=== PATIENT | female | born 1980 | race African-American/Black ===

== ENCOUNTER 2016-08-13 09:41 | Emergency (ER) | payer OTHER ==
[~2016-08-13] VITALS: Ht 149.9 cm; Wt 97.7 kg
[2016-08-13] MEDS ORDERED: METR500 PO (10:18)
[2016-08-13] MEDS ORDERED: OMEP20 PO (10:18)
[2016-08-13] MEDS ORDERED: DOXY75TA2 PO (10:18)
[2016-08-13 10:37] LABS: BASOPHILS # (AUTO) 0.03 K/uL (0.00-0.20); BASOPHILS % (AUTO) 0.4 % (0.0-2.0); EOSINOPHILS % (AUTO) 2.75 % (1.0-6.0); LYMPHOCYTES # (AUTO) 2.5 K/uL (1.0-4.8); LYMPHOCYTES % (AUTO) 33.1 % (22.0-44.0); MEAN CORPUSCULAR HEMOGLOBIN 27.3 pg (26.0-34.0); MEAN CORPUSCULAR HGB CONC 32.3 G/dL (31.0-37.0); MEAN CORPUSCULAR VOLUME 84 fL (80-100); MONOCYTES # (AUTO) 0.5 K/uL (0.1-1.0); MONOCYTES % (AUTO) 6.2 % (2.0-9.0); NEUTROPHILS # (AUTO) 4.3 K/uL (1.8-7.7); NEUTROPHILS % (AUTO) 57.5 % (40.0-70.0); PLATELET COUNT (AUTO) 241 K/uL (150-450); RED BLOOD CELL COUNT(AUTO) 4.38 MIL/uL (4.00-5.20); RED CELL DISTRIBUTION WIDTH 16.8 % (11.5-14.5); WHITE BLOOD COUNT (AUTO) 7.4 K/uL (4.5-11.0)
[2016-08-13 10:42] LABS: APPEARANCE,URINE CLOUDY (CLEAR); GLUCOSE, URINE (UA) NEGATIVE (NEGATIVE); KETONES,URINE NEGATIVE (NEGATIVE); LEUKOCYTE ESTERASE ,URINE NEGATIVE (NEGATIVE); OCCULT BLOOD,URINE LARGE (NEGATIVE); PROTEIN,URINE NEGATIVE (NEGATIVE)
[2016-08-13 10:43] LABS: ADD UA MICROSCOPIC YES
[2016-08-13 10:47] LABS: ANION GAP 10 mmol/L (8-16); CALCIUM, TOTAL 8.6 mg/dL (8.8-10.5); CARBON DIOXIDE 26 mmol/L (22-29); CHLORIDE 104 mmol/L (98-107); CREATININE 0.85 mg/dL (0.60-1.30); GLOMERULAR FILTR. RATE CALC > 60 mL/min (>60); POTASSIUM 4.2 mmol/L (3.5-5.1); SODIUM SERUM 140 mmol/L (136-145); UREA NITROGEN, BLOOD 6 mg/dL (7-18)
[2016-08-13 10:52] LABS: ALANINE AMINOTRANSFERASE 22 U/L (12-78); ALBUMIN 3.1 g/dL (3.4-5.0); ASPARTATE AMINOTRANSFERASE 21 U/L (15-37); BILIRUBIN,TOTAL 0.5 mg/dL (0.1-1.0); TOTAL PROTEIN, SERUM 7.1 g/dL (6.4-8.2)
[2016-08-13 10:53] LABS: SQUAMOUS EPITHELIAL CELL,UR Many /LPF (None Seen); WBC,URINE 0-2 /HPF (0-5)
[2016-08-13] MEDS ORDERED: KETOROLAC TROMETHAMINE 30 MG/ML VIAL IVP ONE (11:15)
[2016-08-13 13:25] VITALS: BP 120/79
== END 2016-08-13 13:36 | disposition home or self-care (01) ==
LOC: EMS 09:41
DX: M62.838 Other muscle spasm (principal); M79.1 Myalgia; R10.9 Unspecified abdominal pain
CPT/HCPCS: 36415; 71020; 80053; 81001; 84703; 85025; 87086; 96374; 99285; J1885

== ENCOUNTER 2019-02-02 14:28 | Emergency (ER) | payer OTHER ==
[~2019-02-02] VITALS: Ht 149.9 cm; Wt 75.0 kg
[~2019-02-02 14:28] MED LIST: DOXY75TA14 PO; METR500 PO; OMEP20 PO
[2019-02-02 14:57] LABS: BASOPHILS % (AUTO) 0.7 % (0.0-2.0); EOSINOPHILS % (AUTO) 0.5 % (1.0-6.0); HEMATOCRIT 39.3 % (36-46); HEMOGLOBIN 12.9 g/dL (12.0-16.0); LYMPHOCYTES # (AUTO) 2.1 K/uL (1.0-4.8); LYMPHOCYTES % (AUTO) 32.5 % (22.0-44.0); MEAN CORPUSCULAR HGB CONC 32.7 G/dL (31.0-37.0); MEAN CORPUSCULAR VOLUME 92 fL (80-100); MONOCYTES # (AUTO) 0.4 K/uL (0.1-1.0); MONOCYTES % (AUTO) 5.6 % (2.0-9.0); NEUTROPHILS # (AUTO) 3.9 K/uL (1.8-7.7); NEUTROPHILS % (AUTO) 60.7 % (40.0-70.0); PLATELET COUNT (AUTO) 202 K/uL (150-450); RED BLOOD CELL COUNT(AUTO) 4.28 MIL/uL (4.00-5.20); RED CELL DISTRIBUTION WIDTH 14.8 % (11.5-14.5)
[2019-02-02 15:10] LABS: ANION GAP 12 mmol/L (8-16); CALCIUM, TOTAL 8.8 mg/dL (8.8-10.5); CARBON DIOXIDE 26 mmol/L (22-29); CHLORIDE 103 mmol/L (98-107); CREATININE 0.75 mg/dL (0.60-1.30); GLOMERULAR FILTR. RATE CALC > 60 mL/min (>60); GLUCOSE,RANDOM 73 mg/dL (70-110); SODIUM SERUM 141 mmol/L (136-145); UREA NITROGEN, BLOOD 7 mg/dL (7-18)
[2019-02-02 15:16] LABS: ALANINE AMINOTRANSFERASE 15 U/L (12-78); ALBUMIN 3.8 g/dL (3.4-5.0); ALKALINE PHOSPHATASE 69 U/L (46-116); ASPARTATE AMINOTRANSFERASE 19 U/L (15-37); BILIRUBIN,TOTAL 0.9 mg/dL (0.1-1.0); TOTAL PROTEIN, SERUM 7.5 g/dL (6.4-8.2)
[2019-02-02 15:46] LABS: HCG,QUANTITATIVE < 1 mIU/mL (0-6)
[2019-02-02] MEDS ORDERED: KETOROLAC TROMETHAMINE 60 MG/2 ML VIAL IM ONE (16:00)
[2019-02-02 16:21] VITALS: BP 129/34
[2019-02-02 16:38] LABS: APPEARANCE,URINE CLEAR (CLEAR); BILIRUBIN,URINE NEGATIVE (NEGATIVE); GLUCOSE, URINE (UA) NEGATIVE (NEGATIVE); KETONES,URINE >=80 mg/dL (NEGATIVE); LEUKOCYTE ESTERASE ,URINE NEGATIVE (NEGATIVE); NITRATE,URINE NEGATIVE (NEGATIVE); OCCULT BLOOD,URINE NEGATIVE (NEGATIVE); PH,URINE 7.5 (5.0-8.0); PROTEIN,URINE NEGATIVE (NEGATIVE); UROBILINOGEN,URINE 0.2 mg/dL (<=1.0)
== END 2019-02-02 17:00 | disposition home or self-care (01) ==
LOC: EMS 14:29
DX: R07.89 Other chest pain (principal)
CPT/HCPCS: 36415; 71045; 80053; 81003; 84484; 84702; 85025; 93005; 96372; 99284; J1885

== ENCOUNTER 2019-05-11 12:03 | Emergency (ER) | payer OTHER ==
[~2019-05-11] VITALS: Ht 149.9 cm; Wt 75.0 kg
[~2019-05-11 12:03] MED LIST changes: -DOXY75TA14 PO; -METR500 PO
[2019-05-11 13:06] LABS: RAPID GROUP A STREP NEGATIVE (NEGATIVE)
[2019-05-11] MEDS ORDERED: KETOROLAC TROMETHAMINE 60 MG/2 ML VIAL IM ONE (13:15)
[2019-05-11 13:18] LABS: INFLUENZA TYPE A NEGATIVE FOR TYPE A (NEGATIVE); INFLUENZA TYPE B NEGATIVE FOR TYPE B (NEGATIVE)
[2019-05-11] MEDS ORDERED: OSELTAMIVIR PHOSPHATE 75 MG CAPSULE PO ONE (13:30)
[2019-05-11 13:50] VITALS: BP 118/76
== END 2019-05-11 13:54 | disposition home or self-care (01) ==
LOC: EMS 12:05
DX: J02.9 Acute pharyngitis, unspecified (principal); R05 Cough; Z91.018 Allergy to other foods
CPT/HCPCS: 81025; 87430; 87804; 96372; 99283; J1885

== ENCOUNTER 2019-12-17 08:38 | Emergency (ER) | payer OTHER ==
[~2019-12-17] VITALS: Ht 149.9 cm; Wt 78.0 kg
[2019-12-17] MEDS ORDERED: IOVERSOL 350 MG/ML 100 ML VIAL ONE (09:13)
[2019-12-17] MEDS ORDERED: SODIUM CHLORIDE 0.9% 100 ML ONE (09:13)
[2019-12-17] MEDS ORDERED: HYDROmorphone 2 MG/ML SYRINGE IVP ONE (09:15)
[2019-12-17] MEDS ORDERED: ONDANSETRON HCL 4 MG/2 ML VIAL IVP ONE (09:15)
[2019-12-17] MEDS ORDERED: BARIUM SULFATE 0.1% SUSPENSION 450 ML BOTTLE PO ONE (09:15)
[2019-12-17] MEDS ORDERED: SODIUM CHLORIDE 0.9% 1,000 ML IV ONE (09:15)
[2019-12-17 09:23] LABS: EOSINOPHILS % (AUTO) 1.5 % (1.0-6.0); HEMATOCRIT 36.1 % (36-46); HEMOGLOBIN 11.9 g/dL (12.0-16.0); LYMPHOCYTES # (AUTO) 2.9 K/uL (1.0-4.8); LYMPHOCYTES % (AUTO) 55.7 % (22.0-44.0); MEAN CORPUSCULAR HEMOGLOBIN 29.7 pg (26.0-34.0); MEAN CORPUSCULAR VOLUME 90 fL (80-100); MONOCYTES # (AUTO) 0.5 K/uL (0.1-1.0); MONOCYTES % (AUTO) 9.2 % (2.0-9.0); NEUTROPHILS # (AUTO) 1.7 K/uL (1.8-7.7); NEUTROPHILS % (AUTO) 32.6 % (40.0-70.0); PLATELET COUNT (AUTO) 255 K/uL (150-450); RED BLOOD CELL COUNT(AUTO) 4.02 MIL/uL (4.00-5.20); RED CELL DISTRIBUTION WIDTH 16.6 % (11.5-14.5)
[2019-12-17 09:31] LABS: ANION GAP 8 mmol/L (8-16); CALCIUM, TOTAL 8.3 mg/dL (8.8-10.5); CARBON DIOXIDE 26 mmol/L (22-29); CHLORIDE 106 mmol/L (98-107); CREATININE 0.86 mg/dL (0.60-1.30); GLOMERULAR FILTR. RATE CALC > 60 mL/min (>60); GLUCOSE,RANDOM 83 mg/dL (70-110); POTASSIUM 3.7 mmol/L (3.5-5.1); SODIUM SERUM 140 mmol/L (136-145); UREA NITROGEN, BLOOD 4 mg/dL (7-18)
[2019-12-17 09:44] LABS: ALANINE AMINOTRANSFERASE 14 U/L (12-78); ALBUMIN 3.2 g/dL (3.4-5.0); ALKALINE PHOSPHATASE 55 U/L (46-116); ASPARTATE AMINOTRANSFERASE 16 U/L (15-37); BILIRUBIN,TOTAL 0.4 mg/dL (0.1-1.0); HCG,QUANTITATIVE 1 mIU/mL (0-6); LIPASE 112 U/L (73-393)
[2019-12-17] MEDS ORDERED: KETOROLAC TROMETHAMINE 30 MG/ML VIAL IVP ONE (11:15)
[2019-12-17 11:22] LABS: BILIRUBIN,URINE NEGATIVE (NEGATIVE); GLUCOSE, URINE (UA) NEGATIVE (NEGATIVE); KETONES,URINE NEGATIVE (NEGATIVE); LEUKOCYTE ESTERASE ,URINE NEGATIVE (NEGATIVE); NITRATE,URINE NEGATIVE (NEGATIVE); PROTEIN,URINE NEGATIVE (NEGATIVE); UROBILINOGEN,URINE 0.2 mg/dL (<=1.0)
[2019-12-17 11:33] LABS: APPEARANCE,URINE HAZY (CLEAR); OCCULT BLOOD,URINE SMALL (NEGATIVE)
[2019-12-17 11:34] LABS: BACTERIA,URINE Few /HPF (None Seen); SQUAMOUS EPITHELIAL CELL,UR Many /LPF (None Seen); WBC,URINE 0-2 /HPF (0-5)
[2019-12-17 14:31] VITALS: BP 107/71
== END 2019-12-17 15:20 | disposition home or self-care (01) ==
LOC: EMS 08:41
DX: K52.9 Noninfective gastroenteritis and colitis, unspecified (principal); R05 Cough; Z20.828 Contact with and (suspected) exposure to other viral communicable diseases
CPT/HCPCS: 36415; 74177; 80053; 81001; 83690; 84702; 85025; 87426; 96361; 96374; 96375; 99285; J1170; J1885; J2405; J7030; J7050; Q9967

== ENCOUNTER 2019-12-18 07:55 | Emergency (ER) | payer OTHER ==
[~2019-12-18] VITALS: Ht 149.9 cm; Wt 70.5 kg
[2019-12-18] MEDS ORDERED: HYDROmorphone 2 MG/ML SYRINGE IVP ONE (10:15)
[2019-12-18] MEDS ORDERED: KETOROLAC TROMETHAMINE 30 MG/ML VIAL IVP ONE (10:15)
[2019-12-18] MEDS ORDERED: ONDANSETRON HCL 4 MG/2 ML VIAL IVP ONE (10:15)
[2019-12-18 10:34] LABS: BASOPHILS % (AUTO) 0.9 % (0.0-2.0); HEMATOCRIT 36.9 % (36-46); HEMOGLOBIN 11.9 g/dL (12.0-16.0); LYMPHOCYTES # (AUTO) 2.7 K/uL (1.0-4.8); LYMPHOCYTES % (AUTO) 51.1 % (22.0-44.0); MEAN CORPUSCULAR HEMOGLOBIN 29.5 pg (26.0-34.0); MEAN CORPUSCULAR HGB CONC 32.3 G/dL (31.0-37.0); MEAN CORPUSCULAR VOLUME 91 fL (80-100); MONOCYTES # (AUTO) 0.3 K/uL (0.1-1.0); MONOCYTES % (AUTO) 6.4 % (2.0-9.0); NEUTROPHILS # (AUTO) 2.2 K/uL (1.8-7.7); NEUTROPHILS % (AUTO) 40.6 % (40.0-70.0); PLATELET COUNT (AUTO) 249 K/uL (150-450); RED BLOOD CELL COUNT(AUTO) 4.04 MIL/uL (4.00-5.20); RED CELL DISTRIBUTION WIDTH 17.1 % (11.5-14.5)
[2019-12-18 10:42] LABS: ANION GAP 8 mmol/L (8-16); CALCIUM, TOTAL 8.2 mg/dL (8.8-10.5); CARBON DIOXIDE 24 mmol/L (22-29); CHLORIDE 109 mmol/L (98-107); CREATININE 0.99 mg/dL (0.60-1.30); GLOMERULAR FILTR. RATE CALC > 60 mL/min (>60); GLUCOSE,RANDOM 66 mg/dL (70-110); POTASSIUM 4.1 mmol/L (3.5-5.1); SODIUM SERUM 141 mmol/L (136-145); UREA NITROGEN, BLOOD 5 mg/dL (7-18)
[2019-12-18 11:53] VITALS: BP 112/71
== END 2019-12-18 13:17 | disposition home or self-care (01) ==
LOC: EMS 07:58
DX: N83.202 Unspecified ovarian cyst, left side (principal); F10.129 Alcohol abuse with intoxication, unspecified; R33.9 Retention of urine, unspecified; Y90.8 Blood alcohol level of 240 mg/100 ml or more
CPT/HCPCS: 36415; 51701; 76856; 80048; 85025; 96374; 96375; 99284; G0480; J1170; J1885; J2405; 51702

== ENCOUNTER 2020-01-14 23:18 | Emergency (ER) | payer OTHER ==
[~2020-01-14] VITALS: Ht 149.9 cm; Wt 70.9 kg
[2020-01-14 23:23] VITALS: BP 112/81
== END 2020-01-15 01:16 | disposition left against medical advice (07) ==
LOC: EMS 23:18
DX: R10.9 Unspecified abdominal pain (principal); Z53.21 Procedure and treatment not carried out due to patient leaving prior to being seen by health care provider

== ENCOUNTER 2020-03-20 03:34 | Emergency (ER) | payer OTHER ==
[~2020-03-20] VITALS: Ht 149.9 cm; Wt 68.6 kg
[2020-03-20 04:49] LABS: BASOPHILS % (AUTO) 0.6 % (0.0-2.0); EOSINOPHILS % (AUTO) 1.2 % (1.0-6.0); HEMATOCRIT 36.5 % (36-46); LYMPHOCYTES # (AUTO) 3.2 K/uL (1.0-4.8); MEAN CORPUSCULAR HEMOGLOBIN 29.9 pg (26.0-34.0); MEAN CORPUSCULAR VOLUME 91 fL (80-100); MONOCYTES # (AUTO) 0.5 K/uL (0.1-1.0); MONOCYTES % (AUTO) 7.4 % (2.0-9.0); NEUTROPHILS # (AUTO) 3.6 K/uL (1.8-7.7); NEUTROPHILS % (AUTO) 47.8 % (40.0-70.0); PLATELET COUNT (AUTO) 212 K/uL (150-450); RED BLOOD CELL COUNT(AUTO) 4.03 MIL/uL (4.00-5.20); RED CELL DISTRIBUTION WIDTH 15.7 % (11.5-14.5)
[2020-03-20 04:55] LABS: ANION GAP 7 mmol/L (8-16); CALCIUM, TOTAL 8.7 mg/dL (8.8-10.5); CARBON DIOXIDE 28 mmol/L (22-29); CHLORIDE 107 mmol/L (98-107); CREATININE 0.91 mg/dL (0.60-1.30); GLOMERULAR FILTR. RATE CALC > 60 mL/min (>60); GLUCOSE,RANDOM 78 mg/dL (70-110); POTASSIUM 3.7 mmol/L (3.5-5.1); SODIUM SERUM 142 mmol/L (136-145); UREA NITROGEN, BLOOD 7 mg/dL (7-18)
[2020-03-20 05:01] LABS: PROTHROMBIN TIME 10.3 SEC (9.4-11.6)
[2020-03-20] MEDS ORDERED: ACETAMINOPHEN 325 MG TABLET PO ONE (05:15)
[2020-03-20 05:20] LABS: ALANINE AMINOTRANSFERASE 10 U/L (12-78); ALBUMIN 3.4 g/dL (3.4-5.0); ALKALINE PHOSPHATASE 74 U/L (46-116); ASPARTATE AMINOTRANSFERASE 12 U/L (15-37); BILIRUBIN,TOTAL 0.5 mg/dL (0.1-1.0); CREATINE KINASE, TOTAL ONLY 107 U/L (26-192); HCG,QUANTITATIVE 1 mIU/mL (0-6)
[2020-03-20 06:25] LABS: AMPHET/METH SCREEN,URINE NEGATIVE (NEGATIVE); BARBITURATE SCREEN, URINE NEGATIVE (NEGATIVE); BENZODIAZEPINES SCREEN,URINE NEGATIVE (NEGATIVE); CANNABINOID SCREEN,URINE NEGATIVE (NEGATIVE); COCAINE SCREEN,URINE NEGATIVE (NEGATIVE); METHADONE SCREEN, URINE NEGATIVE (NEGATIVE); OPIATE SCREEN,URINE NEGATIVE (NEGATIVE)
[2020-03-20 06:31] VITALS: BP 109/74
[2020-03-20 06:36] LABS: PHENCYCLIDINE SCREEN,URINE NEGATIVE (NEGATIVE)
== END 2020-03-20 06:33 | disposition home or self-care (01) ==
LOC: EMS 03:37
DX: M25.512 Pain in left shoulder (principal); F41.9 Anxiety disorder, unspecified; F10.10 Alcohol abuse, uncomplicated; M54.9 Dorsalgia, unspecified; R20.0 Anesthesia of skin; R51.9 Headache, unspecified; Z91.018 Allergy to other foods; Y90.7 Blood alcohol level of 200-239 mg/100 ml
CPT/HCPCS: 36415; 70450; 71045; 80053; 80307; 82550; 84484; 84702; 85025; 85610; 85730; 93005; 99285; G0480; 51701

== ENCOUNTER 2020-04-13 07:17 | Emergency (ER) | payer OTHER ==
[~2020-04-13] VITALS: Ht 149.9 cm; Wt 68.2 kg
[2020-04-13] MEDS ORDERED: KETOROLAC TROMETHAMINE 30 MG/ML VIAL IVP ONE (08:30)
[2020-04-13 08:42] LABS: APPEARANCE,URINE CLEAR (CLEAR); BILIRUBIN,URINE NEGATIVE (NEGATIVE); GLUCOSE, URINE (UA) NEGATIVE (NEGATIVE); KETONES,URINE NEGATIVE (NEGATIVE); LEUKOCYTE ESTERASE ,URINE NEGATIVE (NEGATIVE); NITRATE,URINE NEGATIVE (NEGATIVE); OCCULT BLOOD,URINE NEGATIVE (NEGATIVE); PH,URINE 6.5 (5.0-8.0); PROTEIN,URINE NEGATIVE (NEGATIVE); UROBILINOGEN,URINE 0.2 mg/dL (<=1.0)
[2020-04-13 08:45] LABS: BASOPHILS % (AUTO) 0.4 % (0.0-2.0); EOSINOPHILS % (AUTO) 1.8 % (1.0-6.0); HEMATOCRIT 36.7 % (36-46); HEMOGLOBIN 11.9 g/dL (12.0-16.0); LYMPHOCYTES % (AUTO) 43.6 % (22.0-44.0); MEAN CORPUSCULAR HEMOGLOBIN 29.4 pg (26.0-34.0); MEAN CORPUSCULAR HGB CONC 32.3 G/dL (31.0-37.0); MEAN CORPUSCULAR VOLUME 91 fL (80-100); MONOCYTES # (AUTO) 0.5 K/uL (0.1-1.0); MONOCYTES % (AUTO) 10.5 % (2.0-9.0); NEUTROPHILS % (AUTO) 43.7 % (40.0-70.0); PLATELET COUNT (AUTO) 217 K/uL (150-450); RED BLOOD CELL COUNT(AUTO) 4.04 MIL/uL (4.00-5.20); RED CELL DISTRIBUTION WIDTH 16.4 % (11.5-14.5)
[2020-04-13 08:55] LABS: ANION GAP 10 mmol/L (8-16); CALCIUM, TOTAL 7.9 mg/dL (8.8-10.5); CARBON DIOXIDE 25 mmol/L (22-29); CHLORIDE 111 mmol/L (98-107); CREATININE 0.74 mg/dL (0.60-1.30); GLOMERULAR FILTR. RATE CALC > 60 mL/min (>60); GLUCOSE,RANDOM 76 mg/dL (70-110); SODIUM SERUM 146 mmol/L (136-145); UREA NITROGEN, BLOOD 7 mg/dL (7-18)
[2020-04-13 09:02] LABS: ALANINE AMINOTRANSFERASE 20 U/L (12-78); ALBUMIN 3.6 g/dL (3.4-5.0); ALKALINE PHOSPHATASE 66 U/L (46-116); ASPARTATE AMINOTRANSFERASE 14 U/L (15-37); BILIRUBIN,TOTAL 0.3 mg/dL (0.1-1.0); LIPASE 186 U/L (73-393)
[2020-04-13] MEDS ORDERED: IOVERSOL 350 MG/ML 100 ML VIAL ONE (09:13)
[2020-04-13] MEDS ORDERED: SODIUM CHLORIDE 0.9% 100 ML ONE (09:13)
[2020-04-13 09:22] LABS: HCG,QUANTITATIVE 1 mIU/mL (0-6)
[2020-04-13] MEDS ORDERED: ACETAMINOPHEN 500 MG TABLET PO ONE (11:00)
[2020-04-13 12:47] VITALS: BP 109/73
== END 2020-04-13 12:50 | disposition home or self-care (01) ==
LOC: EMS 07:21
DX: R33.9 Retention of urine, unspecified (principal); R10.30 Lower abdominal pain, unspecified; R30.0 Dysuria
CPT/HCPCS: 36415; 51701; 74177; 76830; 76856; 80053; 81003; 81025; 83690; 84702; 84703; 85025; 87491; 87591; 96374; 99285; J1885; J7050; Q9967; 51702

== ENCOUNTER 2021-04-16 15:59 | Emergency (ER) | payer OTHER ==
[~2021-04-16] VITALS: Ht 149.9 cm; Wt 75.0 kg
[2021-04-16 17:06] LABS: BASOPHILS % (AUTO) 0.5 % (0.0-2.0); EOSINOPHILS % (AUTO) 0.5 % (1.0-6.0); HEMATOCRIT 34.9 % (36-46); HEMOGLOBIN 11.3 g/dL (12.0-16.0); LYMPHOCYTES # (AUTO) 1.5 K/uL (1.0-4.8); LYMPHOCYTES % (AUTO) 22.5 % (22.0-44.0); MEAN CORPUSCULAR HEMOGLOBIN 26.8 pg (26.0-34.0); MEAN CORPUSCULAR HGB CONC 32.5 G/dL (31.0-37.0); MEAN CORPUSCULAR VOLUME 83 fL (80-100); MONOCYTES # (AUTO) 0.5 K/uL (0.1-1.0); MONOCYTES % (AUTO) 7.3 % (2.0-9.0); NEUTROPHILS # (AUTO) 4.5 K/uL (1.8-7.7); NEUTROPHILS % (AUTO) 69.2 % (40.0-70.0); PLATELET COUNT (AUTO) 217 K/uL (150-450); RED BLOOD CELL COUNT(AUTO) 4.23 MIL/uL (4.00-5.20); RED CELL DISTRIBUTION WIDTH 16.5 % (11.5-14.5)
[2021-04-16 17:25] LABS: B-TYPE NATRIURETIC PEPTIDE 35 pg/mL (0-100)
[2021-04-16 17:27] LABS: ANION GAP 7 mmol/L (8-16); CALCIUM, TOTAL 8.3 mg/dL (8.8-10.5); CARBON DIOXIDE 29 mmol/L (22-29); CHLORIDE 104 mmol/L (98-107); GLOMERULAR FILTR. RATE CALC > 60 mL/min (>60); GLUCOSE,RANDOM 88 mg/dL (70-110); POTASSIUM 3.5 mmol/L (3.5-5.1); SODIUM SERUM 140 mmol/L (136-145); UREA NITROGEN, BLOOD 7 mg/dL (7-18)
[2021-04-16] MEDS ORDERED: ACETAMINOPHEN 500 MG TABLET PO ONE (17:30)
[2021-04-16 17:40] LABS: ALANINE AMINOTRANSFERASE 12 U/L (12-78); ALBUMIN 3.5 g/dL (3.4-5.0); ALKALINE PHOSPHATASE 79 U/L (46-116); ASPARTATE AMINOTRANSFERASE 17 U/L (15-37); BILIRUBIN,TOTAL 1.3 mg/dL (0.1-1.0); CREATINE KINASE, TOTAL ONLY 96 U/L (26-192); HCG,QUANTITATIVE 1 mIU/mL (0-6); TOTAL PROTEIN, SERUM 7.4 g/dL (6.4-8.2)
[2021-04-16 17:55] LABS: COVID AG,FIA SOURCE NASOPHARYNGEAL
[2021-04-16 18:24] LABS: INFLUENZA TYPE A NEGATIVE FOR TYPE A (NEGATIVE); INFLUENZA TYPE B NEGATIVE FOR TYPE B (NEGATIVE)
[2021-04-16 18:30] VITALS: BP 138/89
== END 2021-04-16 18:55 | disposition home or self-care (01) ==
LOC: EMS 15:59
DX: R07.89 Other chest pain (principal); Z20.822 Contact with and (suspected) exposure to COVID-19
CPT/HCPCS: 36415; 71045; 80053; 82550; 83880; 84484; 84702; 85025; 87426; 87804; 93005; 99285; U0003

== ENCOUNTER 2021-04-22 08:15 | Emergency (ER) | payer OTHER ==
[~2021-04-22] VITALS: Ht 149.9 cm; Wt 76.4 kg
[2021-04-22 08:24] VITALS: BP 140/93
[2021-04-22] MEDS ORDERED: CIPROFLOXACIN HCL 0.3% 2.5 ML OPHTHALMIC SOLUTION OU ONE (08:45)
== END 2021-04-22 09:36 | disposition home or self-care (01) ==
LOC: EMS 08:15
DX: B30.9 Viral conjunctivitis, unspecified (principal)
CPT/HCPCS: 99282; 99283

== ENCOUNTER 2021-12-30 05:37 | Emergency (ER) | payer OTHER ==
[~2021-12-30] VITALS: Ht 149.9 cm; Wt 79.0 kg
[2021-12-30] MEDS ORDERED: FLUC150T61 PO (06:28)
[2021-12-30] MEDS ORDERED: MICO45CR44 VG (06:28)
[2021-12-30] MEDS ORDERED: CEPH-558 PO (06:28)
[2021-12-30] MEDS ORDERED: ACET-2080 PO (06:28)
[2021-12-30] MEDS ORDERED: DOXY-354 PO (06:28)
[2021-12-30] MEDS ORDERED: AZITHROMYCIN 500 MG TABLET PO ONE (06:30)
[2021-12-30] MEDS ORDERED: FLUCONAZOLE 150 MG TABLET PO ONE (06:30)
[2021-12-30] MEDS ORDERED: CefTRIAXone SODIUM 1 GM/VIAL IM ONE (06:30)
[2021-12-30] MEDS ORDERED: ACETAMINOPHEN/CODEINE 300-30 MG TABLET PO ONE (06:30)
[2021-12-30] MEDS ORDERED: LIDOCAINE/PF 1% 2 ML VIAL IM ONE (06:30)
[2021-12-30 06:45] VITALS: BP 128/72
== END 2021-12-30 07:00 | disposition home or self-care (01) ==
LOC: EMS 05:39
DX: B37.3 Candidiasis of vulva and vagina (principal); Z98.890 Other specified postprocedural states; Z91.018 Allergy to other foods
CPT/HCPCS: 99284; 81002; 81025; 96372; J0696; J3490; Q9967

== ENCOUNTER 2022-01-14 12:12 | Emergency (ER) | payer OTHER ==
[~2022-01-14] VITALS: Ht 149.9 cm; Wt 79.5 kg
[~2022-01-14 12:12] MED LIST changes: +ACET-2080 PO; +CEPH-558 PO; +DOXY-354 PO; +FLUC150T61 PO; +MICO45CR44 VG; -OMEP20 PO
[2022-01-14 13:09] LABS: BASOPHILS % (AUTO) 1.6 % (0.0-2.0); EOSINOPHILS % (AUTO) 2.7 % (1.0-6.0); HEMATOCRIT 30.9 % (36-46); HEMOGLOBIN 9.6 g/dL (12.0-16.0); LYMPHOCYTES # (AUTO) 1.8 K/uL (1.0-4.8); LYMPHOCYTES % (AUTO) 40.2 % (22.0-44.0); MEAN CORPUSCULAR HEMOGLOBIN 24.8 pg (26.0-34.0); MEAN CORPUSCULAR HGB CONC 31.2 G/dL (31.0-37.0); MEAN CORPUSCULAR VOLUME 80 fL (80-100); MONOCYTES # (AUTO) 0.4 K/uL (0.1-1.0); NEUTROPHILS # (AUTO) 2.1 K/uL (1.8-7.7); NEUTROPHILS % (AUTO) 45.5 % (40.0-70.0); PLATELET COUNT (AUTO) 257 K/uL (150-450); RED BLOOD CELL COUNT(AUTO) 3.88 MIL/uL (4.00-5.20); RED CELL DISTRIBUTION WIDTH 17.8 % (11.5-14.5)
[2022-01-14 13:23] LABS: ANION GAP 7 mmol/L (8-16); CALCIUM, TOTAL 8.5 mg/dL (8.8-10.5); CARBON DIOXIDE 27 mmol/L (22-29); CHLORIDE 104 mmol/L (98-107); CREATININE 0.72 mg/dL (0.60-1.30); GLUCOSE,RANDOM 86 mg/dL (70-110); POTASSIUM 3.8 mmol/L (3.5-5.1); SODIUM SERUM 138 mmol/L (136-145); UREA NITROGEN, BLOOD 9 mg/dL (7-18)
[2022-01-14 13:31] LABS: GLOMERULAR FILTR. RATE CALC > 60 mL/min (>60)
[2022-01-14 13:34] LABS: ALANINE AMINOTRANSFERASE 13 U/L (12-78); ALBUMIN 3.2 g/dL (3.4-5.0); ALKALINE PHOSPHATASE 69 U/L (46-116); ASPARTATE AMINOTRANSFERASE 16 U/L (15-37); BILIRUBIN,TOTAL 0.8 mg/dL (0.1-1.0); HCG,QUANTITATIVE 1 mIU/mL (0-6); TOTAL PROTEIN, SERUM 6.8 g/dL (6.4-8.2)
[2022-01-14] MEDS ORDERED: FAMOTIDINE 20 MG TABLET PO ONE (14:30)
[2022-01-14] MEDS ORDERED: SODIUM CHLORIDE 0.9% 100 ML ONE (14:40)
[2022-01-14] MEDS ORDERED: IOHEXOL 350 MG/ML 100 ML VIAL ONE (14:40)
[2022-01-14 16:35] VITALS: BP 125/85
== END 2022-01-14 17:19 | disposition home or self-care (01) ==
LOC: EMS 12:12
DX: R07.9 Chest pain, unspecified (principal); J45.909 Unspecified asthma, uncomplicated; M54.2 Cervicalgia; Z86.79 Personal history of other diseases of the circulatory system; Z98.890 Other specified postprocedural states; Z91.018 Allergy to other foods
CPT/HCPCS: 99285; 71275; 71045; 80053; 84484; 84702; 85025; 85379; 36415; 81025; 93005; Q9967; J7050

== ENCOUNTER 2022-01-31 21:13 | Emergency (ER) | payer OTHER ==
[~2022-01-31] VITALS: Ht 149.9 cm; Wt 80.0 kg
[2022-01-31 21:34] VITALS: BP 139/85
== END 2022-01-31 23:08 | disposition left against medical advice (07) ==
LOC: EMS 21:14
DX: Z53.21 Procedure and treatment not carried out due to patient leaving prior to being seen by health care provider (principal)

== ENCOUNTER 2022-07-27 02:39 | Emergency (ER) | payer OTHER ==
[~2022-07-27] VITALS: Ht 149.9 cm; Wt 79.5 kg
[2022-07-27 03:42] LABS: BASOPHILS % (AUTO) 0.9 % (0.0-2.0); EOSINOPHILS % (AUTO) 2.3 % (1.0-6.0); HEMATOCRIT 30.6 % (36-46); HEMOGLOBIN 9.6 g/dL (12.0-16.0); LYMPHOCYTES # (AUTO) 2.3 K/uL (1.0-4.8); MEAN CORPUSCULAR HEMOGLOBIN 24.7 pg (26.0-34.0); MEAN CORPUSCULAR HGB CONC 31.6 G/dL (31.0-37.0); MEAN CORPUSCULAR VOLUME 78 fL (80-100); MONOCYTES # (AUTO) 0.5 K/uL (0.1-1.0); MONOCYTES % (AUTO) 9.6 % (2.0-9.0); NEUTROPHILS # (AUTO) 2.3 K/uL (1.8-7.7); NEUTROPHILS % (AUTO) 44.2 % (40.0-70.0); PLATELET COUNT (AUTO) 273 K/uL (150-450); RED CELL DISTRIBUTION WIDTH 19.6 % (11.5-14.5)
[2022-07-27 03:53] LABS: ANION GAP 9 mmol/L (8-16); CALCIUM, TOTAL 8.3 mg/dL (8.8-10.5); CARBON DIOXIDE 27 mmol/L (22-29); CHLORIDE 107 mmol/L (98-107); CREATININE 0.75 mg/dL (0.60-1.30); GLOMERULAR FILTR. RATE CALC > 60 mL/min (>60); GLUCOSE,RANDOM 91 mg/dL (70-110); POTASSIUM 3.9 mmol/L (3.5-5.1); SODIUM SERUM 143 mmol/L (136-145); UREA NITROGEN, BLOOD 9 mg/dL (7-18)
[2022-07-27 04:03] LABS: B-TYPE NATRIURETIC PEPTIDE < 5 pg/mL (0-100)
[2022-07-27 04:05] LABS: ALANINE AMINOTRANSFERASE 18 U/L (12-78); ALBUMIN 3.4 g/dL (3.4-5.0); ALKALINE PHOSPHATASE 65 U/L (46-116); ASPARTATE AMINOTRANSFERASE 30 U/L (15-37); BILIRUBIN,TOTAL 0.4 mg/dL (0.1-1.0); CREATINE KINASE, TOTAL ONLY 77 U/L (26-192); TOTAL PROTEIN, SERUM 7.2 g/dL (6.4-8.2)
[2022-07-27 04:38] LABS: AMPHET/METH SCREEN,URINE NEGATIVE (NEGATIVE); APPEARANCE,URINE CLEAR (CLEAR); BARBITURATE SCREEN, URINE NEGATIVE (NEGATIVE); BENZODIAZEPINES SCREEN,URINE NEGATIVE (NEGATIVE); BILIRUBIN,URINE NEGATIVE (NEGATIVE); CANNABINOID SCREEN,URINE POSITIVE (NEGATIVE); COCAINE SCREEN,URINE NEGATIVE (NEGATIVE); GLUCOSE, URINE (UA) NEGATIVE (NEGATIVE); KETONES,URINE TRACE mg/dL (NEGATIVE); LEUKOCYTE ESTERASE ,URINE TRACE (NEGATIVE); METHADONE SCREEN, URINE NEGATIVE (NEGATIVE); NITRATE,URINE NEGATIVE (NEGATIVE); OCCULT BLOOD,URINE NEGATIVE (NEGATIVE); OPIATE SCREEN,URINE NEGATIVE (NEGATIVE); PHENCYCLIDINE SCREEN,URINE NEGATIVE (NEGATIVE); PROTEIN,URINE TRACE mg/dL (NEGATIVE); SPECIFIC GRAVITIY, URINE 1.023 (1.003-1.030); UROBILINOGEN,URINE <=1.0 mg/dL (<=1.0)
[2022-07-27] MEDS ORDERED: FAMOTIDINE 20 MG TABLET PO ONE (04:45)
[2022-07-27 04:46] LABS: BACTERIA,URINE None Seen /HPF (None Seen); RBC,URINE None Seen /HPF (0-2); SQUAMOUS EPITHELIAL CELL,UR Few /LPF (None Seen); WBC,URINE 0-2 /HPF (0-5)
[2022-07-27 06:00] VITALS: BP 129/75
== END 2022-07-27 06:00 | disposition home or self-care (01) ==
LOC: EMS 02:41
DX: R07.89 Other chest pain (principal); J45.909 Unspecified asthma, uncomplicated; Z98.890 Other specified postprocedural states
CPT/HCPCS: 99285; 71045; 80053; 82550; 83880; 84484; 84703; 85025; 36415; 93005; 81001; 80307 ×2; G0480

== ENCOUNTER 2022-09-27 15:25 | Emergency (ER) | payer OTHER ==
[~2022-09-27] VITALS: Ht 149.9 cm; Wt 80.0 kg
[2022-09-27] MEDS ORDERED: SODIUM CHLORIDE 0.9% 1,000 ML IV ONE (16:00)
[2022-09-27] MEDS ORDERED: ONDANSETRON HCL 4 MG/2 ML VIAL IVP ONE (16:00)
[2022-09-27] MEDS ORDERED: ACETAMINOPHEN 325 MG TABLET PO ONE (16:00)
[2022-09-27 16:14] LABS: BASOPHILS % (AUTO) 0.9 % (0.0-2.0); EOSINOPHILS % (AUTO) 0.9 % (1.0-6.0); HEMATOCRIT 34.6 % (36-46); HEMOGLOBIN 10.7 g/dL (12.0-16.0); LYMPHOCYTES # (AUTO) 0.9 K/uL (1.0-4.8); LYMPHOCYTES % (AUTO) 13.7 % (22.0-44.0); MEAN CORPUSCULAR HEMOGLOBIN 23.7 pg (26.0-34.0); MEAN CORPUSCULAR HGB CONC 30.8 G/dL (31.0-37.0); MEAN CORPUSCULAR VOLUME 77 fL (80-100); MONOCYTES # (AUTO) 0.5 K/uL (0.1-1.0); MONOCYTES % (AUTO) 6.7 % (2.0-9.0); NEUTROPHILS # (AUTO) 5.3 K/uL (1.8-7.7); NEUTROPHILS % (AUTO) 77.8 % (40.0-70.0); PLATELET COUNT (AUTO) 266 K/uL (150-450); RED CELL DISTRIBUTION WIDTH 18.7 % (11.5-14.5)
[2022-09-27 16:23] LABS: ANION GAP 16 mmol/L (8-16); CALCIUM, TOTAL 8.6 mg/dL (8.8-10.5); CARBON DIOXIDE 20 mmol/L (22-29); CHLORIDE 102 mmol/L (98-107); CREATININE 0.72 mg/dL (0.60-1.30); GLOMERULAR FILTR. RATE CALC > 60 mL/min (>60); GLUCOSE,RANDOM 85 mg/dL (70-110); POTASSIUM 3.6 mmol/L (3.5-5.1); SODIUM SERUM 138 mmol/L (136-145)
[2022-09-27] MEDS ORDERED: SODIUM CHLORIDE 0.9% 100 ML ONE (16:27)
[2022-09-27] MEDS ORDERED: IOHEXOL 350 MG/ML 100 ML VIAL ONE (16:27)
[2022-09-27 16:39] LABS: B-TYPE NATRIURETIC PEPTIDE < 5 pg/mL (0-100)
[2022-09-27 16:49] LABS: ALANINE AMINOTRANSFERASE 14 U/L (12-78); ALBUMIN 3.6 g/dL (3.4-5.0); ALKALINE PHOSPHATASE 81 U/L (46-116); ASPARTATE AMINOTRANSFERASE 19 U/L (15-37); BILIRUBIN,TOTAL 0.6 mg/dL (0.1-1.0); CREATINE KINASE, TOTAL ONLY 79 U/L (26-192); LIPASE 112 U/L (73-393); PHOSPHORUS 3.1 mg/dL (2.5-4.9)
[2022-09-27 18:06] LABS: APPEARANCE,URINE CLEAR (CLEAR); BILIRUBIN,URINE NEGATIVE (NEGATIVE); GLUCOSE, URINE (UA) NEGATIVE (NEGATIVE); LEUKOCYTE ESTERASE ,URINE NEGATIVE (NEGATIVE); NITRATE,URINE NEGATIVE (NEGATIVE); OCCULT BLOOD,URINE NEGATIVE (NEGATIVE); PH,URINE 5.5 (5.0-8.0); PROTEIN,URINE TRACE mg/dL (NEGATIVE); SPECIFIC GRAVITIY, URINE 1.014 (1.003-1.030); UROBILINOGEN,URINE <=1.0 mg/dL (<=1.0)
[2022-09-27 18:11] VITALS: BP 126/74
[2022-09-27] MEDS ORDERED: DOCUSATE SODIUM 100 MG CAPSULE PO ONE (18:30)
[2022-09-27] MEDS ORDERED: DOCU-385 PO (18:53)
== END 2022-09-27 19:19 | disposition home or self-care (01) ==
LOC: EMS 15:25
DX: K59.00 Constipation, unspecified (principal); R55 Syncope and collapse; J45.909 Unspecified asthma, uncomplicated; R00.2 Palpitations; Z91.013 Allergy to seafood
CPT/HCPCS: 99285; 70450; 96374; 71045; 96361; 80053; 81003; 82550; 83690; 83735; 83880; 84100; 84484; 84703; 85025; 36415; 72125; 74177; 93005; J2405; Q9967; J7030; J7050

== ENCOUNTER 2023-08-20 13:48 | Emergency (ER) | payer OTHER ==
[~2023-08-20] VITALS: Ht 167.6 cm; Wt 80.0 kg
[~2023-08-20 13:48] MED LIST changes: -ACET-2080 PO; -CEPH-558 PO; +DOCU-385 PO; -DOXY-354 PO; -FLUC150T61 PO; -MICO45CR44 VG
[2023-08-20 14:22] VITALS: TEMP 97.9
[2023-08-20 14:52] LABS: BASOPHILS % (AUTO) 0.9 % (0.0-2.0); EOSINOPHILS % (AUTO) 0.9 % (1.0-6.0); HEMATOCRIT 30.6 % (36-46); HEMOGLOBIN 9.5 g/dL (12.0-16.0); LYMPHOCYTES # (AUTO) 1.7 K/uL (1.0-4.8); LYMPHOCYTES % (AUTO) 28.3 % (22.0-44.0); MEAN CORPUSCULAR VOLUME 78 fL (80-100); MONOCYTES # (AUTO) 0.4 K/uL (0.1-1.0); MONOCYTES % (AUTO) 6.9 % (2.0-9.0); NEUTROPHILS # (AUTO) 3.8 K/uL (1.8-7.7); PLATELET COUNT (AUTO) 256 K/uL (150-450); RED BLOOD CELL COUNT(AUTO) 3.95 MIL/uL (4.00-5.20); RED CELL DISTRIBUTION WIDTH 18.7 % (11.5-14.5)
[2023-08-20 15:01] LABS: ANION GAP 15 mmol/L (8-16); CALCIUM, TOTAL 8.1 mg/dL (8.8-10.5); CARBON DIOXIDE 22 mmol/L (22-29); CHLORIDE 107 mmol/L (98-107); CREATININE 0.75 mg/dL (0.60-1.30); GLOMERULAR FILTR. RATE CALC > 60 mL/min (>60); GLUCOSE,RANDOM 78 mg/dL (70-110); POTASSIUM 3.9 mmol/L (3.5-5.1); SODIUM SERUM 143 mmol/L (136-145); UREA NITROGEN, BLOOD 8 mg/dL (7-18)
[2023-08-20 15:03] LABS: ALCOHOL, BLOOD (SERUM) 51 mg/dL (0-10)
[2023-08-20 15:07] LABS: ALANINE AMINOTRANSFERASE 17 U/L (12-78); ALBUMIN 3.3 g/dL (3.4-5.0); ALKALINE PHOSPHATASE 67 U/L (46-116); ASPARTATE AMINOTRANSFERASE 24 U/L (15-37); BILIRUBIN,TOTAL 0.4 mg/dL (0.1-1.0); TOTAL PROTEIN, SERUM 7.4 g/dL (6.4-8.2)
[2023-08-20 15:21] LABS: RBC MORPHOLOGY COMMENT ABNORMAL RBC MORPH
[2023-08-20 16:19] VITALS: BP 127/86; PULSE 74; RESP 15
[2023-08-20] MEDS ORDERED: ALBU18HF12 IH (16:51)
== END 2023-08-20 17:00 | disposition home or self-care (01) ==
LOC: EMS 13:51
DX: F10.129 Alcohol abuse with intoxication, unspecified (principal); J45.909 Unspecified asthma, uncomplicated; Z98.890 Other specified postprocedural states; Y90.9 Presence of alcohol in blood, level not specified
CPT/HCPCS: 99285; 71045; 80053; 84703; 85025; 36415; 93005; G0480

== ENCOUNTER 2024-04-16 15:12 | Emergency (ER) | payer OTHER ==
[~2024-04-16] VITALS: Ht 149.9 cm; Wt 61.4 kg
[~2024-04-16 15:12] MED LIST changes: +ALBU18HF12 IH
[2024-04-16 15:15] VITALS: BP 130/93; PULSE 80; RESP 18; TEMP 98.9; O2SAT 99
[2024-04-16 15:26] LABS: COVID AG,FIA SOURCE NASAL SWAB
[2024-04-16 15:38] LABS: RAPID GROUP A STREP NEGATIVE (NEGATIVE)
[2024-04-16 15:51] LABS: INFLUENZA TYPE A NEGATIVE FOR TYPE A (NEGATIVE); INFLUENZA TYPE B NEGATIVE FOR TYPE B (NEGATIVE); SARS-COV2 (COVID) ANTIGEN,FIA Negative (Negative)
[2024-04-16] MEDS ORDERED: IBUP-1492 PO (17:32)
[2024-04-16] MEDS ORDERED: AMOX-457 PO (17:32)
[2024-04-16] MEDS ORDERED: ACET-3385 PO (17:32)
[2024-04-16] MEDS: IBUPROFEN 600 MG TABLET PO ONE (17:54)
[2024-04-16] MEDS: AMOX TR/POT CLAV 875 MG/125 MG TABLET PO ONE (17:54)
== END 2024-04-16 17:59 | disposition home or self-care (01) ==
LOC: EMS 15:12
DX: J03.90 Acute tonsillitis, unspecified (principal); J45.909 Unspecified asthma, uncomplicated; Z20.822 Contact with and (suspected) exposure to COVID-19; Z98.890 Other specified postprocedural states
CPT/HCPCS: 87430; 87804; 99283

== ENCOUNTER 2025-02-19 12:52 | Emergency (ER) | payer MEDICAID, OTHER ==
[~2025-02-19] VITALS: Ht 153 cm; Wt 59.1 kg
[~2025-02-19 12:52] MED LIST changes: +ACET-3385 PO; +AMOX-457 PO; +IBUP-1492 PO
[2025-02-19 12:56] VITALS: TEMP 98.5
[2025-02-19 13:21] LABS: PLATELET COUNT (AUTO) 302 K/uL (150-450); RED BLOOD CELL COUNT(AUTO) 4.18 MIL/uL (4.00-5.20); RED CELL DISTRIBUTION WIDTH 19.7 % (11.5-14.5); WHITE BLOOD COUNT (AUTO) 5.1 K/uL (4.5-11.0)
[2025-02-19 13:23] VITALS: PULSE 69; RESP 18; O2SAT 100
[2025-02-19 13:23] LABS: RBC MORPHOLOGY COMMENT ABNORMAL RBC MORPH
[2025-02-19] MEDS: IPRATROPIUM BROMIDE 0.5 MG/2.5 ML NEB SOLUTION NEB ONE (13:23)
[2025-02-19] MEDS: ALBUTEROL SULFATE 2.5 MG/0.5 ML NEB SOLUTION NEB ONE (13:23)
[2025-02-19 13:27] LABS: CALCIUM, TOTAL 8.1 mg/dL (8.8-10.5); CREATININE 0.82 mg/dL (0.60-1.30); GLOMERULAR FILTR. RATE CALC > 60 mL/min (>60); GLUCOSE,RANDOM 93 mg/dL (70-110); SODIUM SERUM 137 mmol/L (136-145); UREA NITROGEN, BLOOD 7 mg/dL (7-18)
[2025-02-19 13:38] VITALS: PULSE 87; RESP 22; O2SAT 100
[2025-02-19 13:38] LABS: TROPONIN I-HIGH SENSITIVITY 4 ng/L (<51)
[2025-02-19 15:00] VITALS: BP 139/79; PULSE 88; RESP 16; O2SAT 100
[2025-02-19] MEDS ORDERED: PRED-554 PO (15:12)
[2025-02-19] MEDS ORDERED: DIPH25CA85 PO (15:14)
[2025-02-19] MEDS ORDERED: ALBU18HF12 IH (15:16)
== END 2025-02-19 15:20 | disposition home or self-care (01) ==
LOC: MERGE 12:52 → EMS 12:52 → EDBD 12:52 → EMS 15:20
DX: T78.09XA Anaphylactic reaction due to other food products, initial encounter (principal); R06.02 Shortness of breath; Z91.013 Allergy to seafood; Z91.018 Allergy to other foods; Z86.018 Personal history of other benign neoplasm; Y92.89 Other specified places as the place of occurrence of the external cause
CPT/HCPCS: 71045; 80048; 84484; 84703; 85025; 93005; 94640; 96374; 96375; 99285; 36415-L1; 36415-TC; J7613